=== PATIENT | male | born 1970 | race Hispanic/Latino ===

== ENCOUNTER 2020-10-25 19:34 | Emergency (ER) | payer MEDICARE, OTHER ==
[2020-10-25 22:11] VITALS: BP 143/100
--- NOTE | 2020-10-25 23:25 | XRay Report ---
LEFT WRIST 4 VIEWS INDICATION / CLINICAL INFORMATION: Left wrist pain and swelling. History of blunt trauma to left hand/wrist 2 days ago (hit a wall). COMPARISON: None available. FINDINGS: BONES and JOINT(S): There is an acute mildly displaced vertically oriented fracture through the base of the fifth metacarpal with probable intra-articular extension. No dislocation. No significant arthr itis. SOFT TISSUES: Mild edema is seen dorsally along the hand and throughout the wrist. ADDITIONAL FINDINGS: None. IMPRESSION: Acute left fifth metacarpal fracture. Signer Name: Cullen Coyle MD Signed: 10/25/2020 11:21 PM Workstation Name: [id number]
--- NOTE | 2020-10-25 23:45 | Emergency Department Report ---
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 ED Review of Systems ROS: Stated complaint: LEFT HAND PAIN/SWELLING Other details as noted in HPI Comment: All other systems reviewed and negative ED Past Medical Hx - Past Medical History Previous Medical History?: Yes Hx Psychiatric Treatment: Yes (schizophrenia, bipolar) - Surgical History Past Surgical History?: No - Social History Smoking Status: Current Some Day Smoker - Medications Home Medications: Home Medications Medication Instructions Recorded Confirmed Last Taken Type Benztropine [Cogentin] 07/29/13 07/29/13 Unknown History Divalproex [Linnea Mchugh] 07/29/13 07/29/13 Unknown History Ibuprofen [Motrin] 800 mg PO TID PRN #20 tablet 07/29/13 Unknown Rx buPROPion [Wellbutrin] 07/29/13 07/29/13 Unknown History busPIRone [Buspar] 07/29/13 07/29/13 Unknown History Acetaminophen/Codeine [Tylenol 1 tab PO Q6H PRN #7 tab 10/25/20 Unknown Rx /Codeine # 3 tab] Upper Extremity Exam - Exam General: Vital signs noted. No distress. Alert and acting appropriately. Head and Torso: No HEENT Abnormality, No Neck Tenderness, No Chest/Lungs Abnormality, No Abdominal Tenderness, No Back Tenderness Shoulder Exam: Yes Normal Range of Motion in Shoulder, No Shoulder Tenderness, No Clavicle Tenderness, No Shoulder Deformity, No AC Joint Tenderness Arm Exam: No Arm/Humerus Tenderness, No Arm Deformity Elbow: No Elbow Tenderness, No Normal Range of Motion in Elbow, No Elbow Deformity Forearm: No Forearm Tenderness, No Forearm Deformity, No Pain with Pronation, No Pain with Supination Wrist: Yes Normal ROM in Wrist, No Wrist Tenderness, No Wrist Deformity, No Snuffbox Tenderness, No Pain with Axial Thumb Compression Hand: Yes Hand Tenderness (. Treated with a second metacarpal phalangeal joint.), Yes Normal ROM in Digit(s), No Hand Deformity, No Digit Tenderness, No Digit(s) Deformity, No Tendon Dysfunction CMS Exam: Yes Normal Distal Pulses, Yes Normal Capillary Refill, Yes Normal Distal Sensation, No Broken Skin ED Course Vital Signs 10/25/20 22:07 Temperature 98.0 F Pulse Rate 80 Respiratory 19 Rate Blood Pressure 143/100 O2 Sat by Pulse 97 Oximetry - Orthopedic Splinting/Casting Injury #1 Side: left Upper Extremity Injury Location: hand Upper Extremity Immobilizer: [facility] gutter Critical care attestation.: If time is entered above; I have spent that time in minutes in the direct care of this critically ill patient, excluding procedure time. ED Disposition Clinical Impression: Boxer's fracture Disposition: - TO HOME OR SELFCARE Is pt being admited?: No Does the pt Need Aspirin: No Condition: Stable Instructions: Metacarpal Fracture, [id number], Cast or Splint Care, Adult, [id number], Boxer's Fracture Prescriptions: Acetaminophen/Codeine [Tylenol /Codeine # 3 tab] 1 tab PO Q6H PRN #7 tab PRN Reason: Pain , Severe (7-10) Referrals: PRIMARY CARE, [Primary Care Provider] - 3-5 Days [facility] [Provider Group] - 3-5 Days
[2020-10-26] MEDS ORDERED: IBUPROFEN 800 MG TAB PO ONE (00:11)
[2020-10-26] MEDS ORDERED: HYDROcodone/ACETAMINOPHEN 5-325 MG TAB PO ONE (00:11)
[2020-10-26] MEDS ORDERED: ONDANSETRON 4 MG ODT TAB PO ONE (00:12)
== END 2020-10-26 00:20 | disposition home or self-care (01) ==
LOC: ED 19:34
DX: S62.311A Displaced fracture of base of second metacarpal bone, left hand, initial encounter for closed fracture (principal); F20.9 Schizophrenia, unspecified; F31.9 Bipolar disorder, unspecified; F17.200 Nicotine dependence, unspecified, uncomplicated; Z79.899 Other long term (current) drug therapy; X58.XXXA Exposure to other specified factors, initial encounter; Y93.89 Activity, other specified; Y92.89 Other specified places as the place of occurrence of the external cause; Y99.8 Other external cause status
CPT/HCPCS: 99284; Q0162